=== PATIENT | male | born 1935 | race Caucasian/White ===

== ENCOUNTER 2020-10-04 10:00 | Inpatient (IN) | payer MEDICARE, BC ==
--- NOTE | 2020-10-04 10:23 | ED ---
General Adult HPI - General Stated complaint: COVID+,Diff Breathing Time Seen by Provider: 10/04/20 10:10 - History of Present Illness Initial comments: 85-year-old male with history of dementia presents emergency Department via EMS for weakness and shortness of breath. Per EMS report, patient is a recent resident of [facility] and was found to be unresponsive today with an oxygen saturation of 84. She was started on 3 L which brought up his O2 saturation to 90%. Patient is also developed decreased appetite over the last few days. At baseline he typically is responsive and feeds himself. Patient tested positive for cocaine on 09/20/20. Patient unable to answer any questions. He arrived on a nonrebreather with an O2 of 91-94% - Related Data Home Medications Medication Instructions Recorded Confirmed ALPRAZolam [Xanax] 0.25 mg PO BID@0900,209910/04/20 10/04/20 Acetaminophen Tab [Tylenol] 650 mg PO Q4H PRN 10/04/20 10/04/20 Ascorbic Acid [Vitamin C] 500 mg PO DAILY@89910/04/20 10/04/20 Bisacodyl 10 mg PO Q72H PRN 10/04/20 10/04/20 Cetirizine HCl [Zyrtec] 10 mg PO HS@209910/04/20 10/04/20 Cholecalciferol [Vitamin D3 (25 25 mcg PO DAILY@89910/04/20 10/04/20 Mcg = 1000 Iu)] Donepezil [Aricept] 10 mg PO HS@209910/04/20 10/04/20 Febuxostat [Uloric] 40 mg PO DAILY@89910/04/20 10/04/20 Multivits,Th W-Ca,Fe,Oth Min 1 tab PO DAILY@89910/04/20 10/04/20 [Therapeutic M] Pravastatin Sodium [Pravachol] 40 mg PO HS@209910/04/20 10/04/20 Sertraline [Zoloft] 100 mg PO HS@209910/04/20 10/04/20 Tamsulosin [Flomax] 0.4 mg PO HS@209910/04/20 10/04/20 Zinc Gluconate [Zinc] 50 mg PO DAILY@89910/04/20 10/04/20 amLODIPine [Norvasc] 5 mg PO HS@2100 10/04/20 10/04/20 atenoloL [Atenolol] 25 mg PO DAILY@0900 10/04/20 10/04/20 Allergies Allergy/AdvReac Type Severity Reaction Status Date / Time Penicillins AdvReac Unknown Verified 10/04/20 10:39 Review of Systems ROS Statement: Those systems with pertinent positive or pertinent negative responses have been documented in the HPI. ROS Other: All systems not noted in ROS Statement are negative. General Exam Limitations: altered mental status General appearance: alert, in no apparent distress Head exam: Present: atraumatic, normocephalic, normal inspection Eye exam: Present: normal appearance, PERRL Pupils: Present: normal accommodation ENT exam: Present: normal exam, normal oropharynx, mucous membranes dry, TM's normal bilaterally, normal external ear exam Neck exam: Present: normal inspection, full ROM. Absent: tenderness, lymphadenopathy Respiratory exam: Present: respiratory distress (Tachypneic), rales (Diffuse bilateral rales). Absent: rhonchi, stridor, chest wall tenderness, accessory muscle use Cardiovascular Exam: Present: regular rate, normal rhythm, normal heart sounds. Absent: bradycardia, tachycardia, irregular rhythm GI/Abdominal exam: Present: soft. Absent: distended, tenderness, guarding, rebound Extremities exam: Present: normal inspection, full ROM, normal capillary refill, other (Palpable DP and PT bilaterally). Absent: tenderness, pedal edema, joint swelling, calf tenderness Back exam: Present: normal inspection, full ROM. Absent: tenderness, CVA te nderness (R), CVA tenderness (L) Neurological exam: Present: alert Skin exam: Present: warm, dry, intact, normal color Course Vital Signs 10/04/20 10/04/20 10:20 11:47 Temperature 98.5 F Pulse Rate 108 H 109 H Respiratory 18 20 Rate Blood Pressure 109/88 151/87 O2 Sat by Pulse 93 L 93 L Oximetry EKG Findings - EKG Comments: EKG Findings:: Sinus tachycardia with occasional PAC ventricular rate 110, AL 144, QRS 76, QTC 452. Medical Decision Making - Medical Decision Making 85-year-old male with history of dementia presents emergency department with chief complaint of weakness. On physical examination, patient is arousable but not able to answer questions. Rales noted at bilateral lung base. Patient is currently having oxygen saturation of 92-94% on a nonrebreather at 3 L. Chest x-ray reveals Covid pneumonia. He did test positive for Covid. CBC reveals hemoconcentration likely from dehydration due to decreased oral intake. CMP reveals acute kidney injury with elevated BUN and creatinine of 41 and 2.17, respectfully. He also had an elevated d-dimer and troponin. Not able to rule out PE with a CT secondary to poor renal intake. Patient was started on IV fluids. Also given 6 mg of Decadron and azithromycin. Patient will be admitted for further medical management. Discussed the case with who will admit. Case discussed with Dr mcmahon Nephrology and pulmonary on consult. - Lab Data Result diagrams: 10/04/20 10:26 10/04/20 10:26 Lab Results 10/04/20 10/04/20 10/04/20 Range/Units 10:26 10:26 10:26 WBC 7.1 (3.8-10.6) k/uL RBC 5.90 (4.30-5.90) m/uL Hgb 18.4 H (13.0-17.5) gm/dL Hct 55.8 H (39.0-53.0) % MCV 94.6 (80.0-100.0) fL MCH 31.3 (25.0-35.0) pg MCHC 33.1 (31.0-37.0) g/dL RDW 13.8 (11.5-15.5) % Plt Count 110 L (150-450) k/uL MPV 10.3 Neutrophils % 81 % Lymphocytes % 14 % Monocytes % 3 % Eosinophils % 1 % Basophils % 1 % Neutrophils # 5.7 (1.3-7.7) k/uL Lymphocytes # 1.0 (1.0-4.8) k/uL Monocytes # 0.2 (0-1.0) k/uL Eosinophils # 0.1 (0-0.7) k/uL Basophils # 0.1 (0-0.2) k/uL PT 10.7 (9.0-12.0) sec INR 1.0 (<1.2) APTT 23.4 (22.0-30.0) sec D-Dimer 1.58 H (<0.60) mg/L FEU Sodium 150 H (137-145) mmol/L Potassium 4.6 (3.5-5.1) mmol/L Chloride 117 H (98-107) mmol/L Carbon Dioxide 19 L (22-30) mmol/L Anion Gap 14 mmol/L BUN 41 H (9-20) mg/dL Creatinine 2.17 H (0.66-1.25) mg/dL Est GFR (CKD-EPI)AfAm 31 (>60 ml/min/1.73 sqM) Est GFR (CKD-EPI)NonAf 27 (>60 ml/min/1.73 sqM) Glucose 133 H (74-99) mg/dL Plasma Lactic Acid Doug (0.7-2.0) mmol/L Calcium 10.2 (8.4-10.2) mg/dL Magnesium 2.2 (1.6-2.3) mg/dL Total Bilirubin 0.8 (0.2-1.3) mg/dL AST 75 H (17-59) U/L ALT 34 (4-49) U/L Alkaline Phosphatase 151 H (38-126) U/L Lactate Dehydrogenase 677 H (313-618) U/L Troponin I (0.000-0.034) ng/mL C-Reactive Protein 5.7 H (<1.0) mg/dL Total Protein 6.4 (6.3-8.2) g/dL Albumin 3.8 (3.5-5.0) g/dL Influenza Type A (PCR) (Not Detectd) Influenza Type B (PCR) (Not Detectd) RSV (PCR) (Not Detectd) SARS-CoV-2 (PCR) (Not Detectd) 10/04/20 10/04/20 10/04/20 Range/Units 10:26 10:26 10:26 WBC (3.8-10.6) k/uL RBC (4.30-5.90) m/uL Hgb (13.0-17.5) gm/dL Hct (39.0-53.0) % MCV (80.0-100.0) fL MCH (25.0-35.0) pg MCHC (31.0-37.0) g/dL RDW (11.5-15.5) % Plt Count (150-450) k/uL MPV Neutrophils % % Lymphocytes % % Monocytes % % Eosinophils % % Basophils % % Neutrophils # (1.3-7.7) k/uL Lymphocytes # (1.0-4.8) k/uL Monocytes # (0-1.0) k/uL Eosinophils # (0-0.7) k/uL Basophils # (0-0.2) k/uL PT (9.0-12.0) sec INR (<1.2) APTT (22.0-30.0) sec D-Dimer (<0.60) mg/L FEU Sodium (137-145) mmol/L Potassium (3.5-5.1) mmol/L Chloride (98-107) mmol/L Carbon Dioxide (22-30) mmol/L Anion Gap mmol/L BUN (9-20) mg/dL Creatinine (0.66-1.25) mg/dL Est GFR (CKD-EPI)AfAm (>60 ml/min/1.73 sqM) Est GFR (CKD-EPI)NonAf (>60 ml/min/1.73 sqM) Glucose (74-99) mg/dL Plasma Lactic Acid Doug 2.6 H* (0.7-2.0) mmol/L Calcium (8.4-10.2) mg/dL Magnesium (1.6-2.3) mg/dL Total Bilirubin (0.2-1.3) mg/dL AST (17-59) U/L ALT (4-49) U/L Alkaline Phosphatase (38-126) U/L Lactate Dehydrogenase (313-618) U/L Troponin I 0.111 H* (0.000-0.034) ng/mL C-Reactive Protein (<1.0) mg/dL Total Protein (6.3-8.2) g/dL Albumin (3.5-5.0) g/dL Influenza Type A (PCR) Not Detected (Not Detectd) Influenza Type B (PCR) Not Detected (Not Detectd) RSV (PCR) Not Detected (Not Detectd) SARS-CoV-2 (PCR) Detected A (Not Detectd) Disposition Clinical Impression: Acute kidney injury, Dehydration, Hypoxemia, Pneumonia due to COVID-19 virus Disposition: ADMITTED IP TO THIS HOSP Condition: Fair Is patient prescribed a controlled substance at d/c from ED?: No Referrals: Tacos Cavanaugh MD [Primary Care Provider] - 1-2 days Time of Disposition: 12:30
[2020-10-04 10:39] LABS: Basophils # (A) 0.1 k/uL (0-0.2); Basophils % (A) 1 %; Eosinophils # (A) 0.1 k/uL (0-0.7); Eosinophils % (A) 1 %; HGB 18.4 gm/dL (13.0-17.5); Lymphocytes % (A) 14 %; MCH 31.3 pg (25.0-35.0); MCHC 33.1 g/dL (31.0-37.0); MCV 94.6 fL (80.0-100.0); Mean Platelet Volume 10.3; Monocytes # (A) 0.2 k/uL (0-1.0); Monocytes % (A) 3 %; Neutrophils # (A) 5.7 k/uL (1.3-7.7); Neutrophils % (A) 81 %; RDW 13.8 % (11.5-15.5); WBC 7.1 k/uL (3.8-10.6)
--- NOTE | 2020-10-04 10:44 | XR ---
EXAMINATION TYPE: XR chest 1V portable DATE OF EXAM: 10/04/2020 HISTORY: Shortness of breath. COMPARISON: None. TECHNIQUE: Single view of the chest is submitted. FINDINGS: Demonstrated are scattered senescent parenchymal change. Patchy basilar infiltrates compatible with underlying pneumonia. The heart is stable. Hilar and mediastinal structures are within normal limits. Degenerative changes are seen of the dorsal spine. IMPRESSION: 1. Patchy basilar infiltrates compatible with underlying pneumonia.
[2020-10-04 10:52] LABS: Partial Thromboplastin Time 23.4 sec (22.0-30.0); Prothrombin Time 10.7 sec (9.0-12.0)
[2020-10-04 10:54] LABS: Albumin 3.8 g/dL (3.5-5.0); C Reactive Protein 5.7 mg/dL (<1.0); Calcium 10.2 mg/dL (8.4-10.2); Magnesium 2.2 mg/dL (1.6-2.3); Potassium 4.6 mmol/L (3.5-5.1); Total Bilirubin 0.8 mg/dL (0.2-1.3); Total Protein 6.4 g/dL (6.3-8.2)
[2020-10-04 10:55] LABS: HCT 55.8 % (39.0-53.0); Platelet Count 110 k/uL (150-450)
[2020-10-04 11:06] LABS: D-Dimer 1.58 mg/L FEU (<0.60)
[2020-10-04] MEDS ORDERED: SODIUM CHLORIDE 0.9% 1,000 ML IV STA ×2 (11:14)
[2020-10-04] MEDS ORDERED: AZITHROMYCIN 500 MG in SODIUM CHLORIDE 0.9% 250 ML IVPB STA (11:17)
[2020-10-04] MEDS ORDERED: NALOXONE 0.4 MG/ML 1 ML VIAL IV PRN (12:18)
[2020-10-04] MEDS ORDERED: LORazepam 2 MG/ML INJ IV PRN (12:18)
[2020-10-04] MEDS ORDERED: SODIUM CHLORIDE 0.9% 1,000 ML IV SCH (12:30)
[2020-10-04 14:28] LABS: Appearance,Urine Clear (Clear); Bilirubin,Urine 1+ (Negative); Blood,Urine Negative (Negative); Color,Urine Yellow; Glucose,Urine (UA) Negative (Negative); Ketones,Urine 1+ (Negative); Leukocyte Esterase,Urine Negative (Negative); Mucus,Urine Rare /hpf; Nitrite,Urine Negative (Negative); PH, Urine 5.5 (5.0-8.0); Protein,Urine 1+ (Negative); RBC,Urine 1 /hpf (0-5); Specific Gravity,Urine 1.024 (1.001-1.035); WBC,Urine 2 /hpf (0-5)
[2020-10-04 16:26] LABS: Ferritin 242.8 ng/mL (22.0-322.0)
[2020-10-04] MEDS ORDERED: DEXTROSE 5% IN WATER 1,000 ML IV ONE (17:25)
[2020-10-04] MEDS ORDERED: ACETAMINOPHEN TAB 325 MG TAB PO PRN (17:26)
--- NOTE | 2020-10-04 17:34 | P.HPIM ---
History of Present Illness 85-year-old male with history of dementia presents emergency Department via EMS for weakness and shortness of breath. Per EMS report, patient is a recent resident of [facility] and was found to be unresponsive today with an oxygen sat uration of 84. She was started on 3 L which brought up his O2 saturation to 90%. Patient is also developed decreased appetite over the last few days. At baseline he typically is responsive and feeds himself. Patient tested positive for cocaine on 09/20/20. Patient unable to answer any questions. He arrived on a nonrebreather with an O2 of 91-94% Patient is presently on 100% nonrebreather with oxygen flow rate of 15 L. Patient is severely dehydrated with acute renal failure unable to provide any history to me. A since creatinine is 2.17 baseline is not available BUN of 41. Patient has elevated sodium anion gap metabolic acidosis with lactic acidosis which improved now. Chest x-ray showing patchy bilateral infiltrates Review of Systems REVIEW OF SYSTEMS: Unable to obtain due to his clinical condition Past Medical History Past Medical History: Dementia, Renal Disease Additional Past Medical History / Comment(s): freq falls, gout History of Any Multi-Drug Resistant Organisms: None Reported Past Surgical History: No Surgical Hx Reported Past Psychological History: No Psychological Hx Reported Smoking Status: Never smoker Past Alcohol Use History: None Reported Past Drug Use History: None Reported Medications and Allergies Home Medications Medication Instructions Recorded Confirmed Type ALPRAZolam [Xanax] 0.25 mg PO BID@0900,209910/04/20 10/04/20 History Acetaminophen Tab [Tylenol] 650 mg PO Q4H PRN 10/04/20 10/04/20 History Ascorbic Acid [Vitamin C] 500 mg PO DAILY@89910/04/20 10/04/20 History Bisacodyl 10 mg PO Q72H PRN 10/04/20 10/04/20 History Cetirizine HCl [Zyrtec] 10 mg PO HS@209910/04/20 10/04/20 History Cholecalciferol [Vitamin D3 (25 25 mcg PO DAILY@89910/04/20 10/04/20 History Mcg = 1000 Iu)] Donepezil [Aricept] 10 mg PO HS@209910/04/20 10/04/20 History Febuxostat [Uloric] 40 mg PO DAILY@89910/04/20 10/04/20 History Multivits,Th W-Ca,Fe,Oth Min 1 tab PO DAILY@89910/04/20 10/04/20 History [Therapeutic M] Pravastatin Sodium [Pravachol] 40 mg PO HS@209910/04/20 10/04/20 History Sertraline [Zoloft] 100 mg PO HS@209910/04/20 10/04/20 History Tamsulosin [Flomax] 0.4 mg PO HS@209910/04/20 10/04/20 History Zinc Gluconate [Zinc] 50 mg PO DAILY@89910/04/20 10/04/20 History amLODIPine [Norvasc] 5 mg PO HS@209910/04/20 10/04/20 History atenoloL [Atenolol] 25 mg PO DAILY@89910/04/20 10/04/20 History Allergies Allergy/AdvReac Type Severity Reaction Status Date / Time Penicillins AdvReac Unknown Verified 10/04/20 10:39 Physical Exam Vitals: Vital Signs Temp Pulse Resp BP Pulse Ox 10/04/20 15:41 99 26 H 129/73 10/04/20 15:00 23 128/70 10/04/20 14:00 98 27 H 120/79 10/04/20 13:30 99.9 F H 110 H 28 H 120/78 91 L 10/04/20 12:00 110 H 10/04/20 11:47 109 H 20 151/87 93 L 10/04/20 10:20 98.5 F 108 H 18 109/88 93 L Intake and Output 10/04/20 10/04/20 10/04/20 06:59 14:59 22:59 Other: Weight 78.018 kg PHYSICAL EXAMINATION: GENERAL: Patient is barely responsive, patient is on nonrebreather HEENT: Pupils are round and equally reacting to light. EOMI. No scleral icterus. No conjunctival pallor. Normocephalic, atraumatic. No pharyngeal erythema. No thyromegaly. CARDIOVASCULAR: S1 and S2 present. No murmurs, rubs, or gallops. PULMONARY: Diffuse bilateral rhonchi ABDOMEN: Soft, nontender, nondistended, normoactive bowel sounds. No palpable organomegaly. MUSCULOSKELETAL: No joint swelling or deformity. EXTREMITIES: No cyanosis, clubbing, or pedal edema. NEUROLOGICAL: Barely responsive SKIN: No rashes. Results CBC & Chem 7: 10/04/20 10:10/04/20 10: Labs: Abnormal Lab Results - Last 24 Hours (Table) 10/04/20 10/04/20 10/04/20 Range/Units 10: 10: 10: Hgb 18.4 H (13.0-17.5) gm/dL Hct 55.8 H (39.0-53.0) % Plt Count 110 L (150-450) k/uL D-Dimer 1.58 H (<0.60) mg/L FEU Sodium 150 H (137-145) mmol/L Chloride 117 H (98-107) mmol/L Carbon Dioxide 19 L (22-30) mmol/L BUN 41 H (9-20) mg/dL Creatinine 2.17 H (0.66-1.25) mg/dL Glucose 133 H (74-99) mg/dL Plasma Lactic Acid Doug (0.7-2.0) mmol/L AST 75 H (17-59) U/L Alkaline Phosphatase 151 H (38-126) U/L Lactate Dehydrogenase 677 H (313-618) U/L Troponin I (0.000-0.034) ng/mL C-Reactive Protein 5.7 H (<1.0) mg/dL Urine Protein (Negative) Urine Ketones (Negative) Urine Bilirubin (Negative) Urine Mucus (None) /hpf SARS-CoV-2 (PCR) (Not Detectd) 10/04/20 10/04/20 10/04/20 Range/Units 10: 10: 10: Hgb (13.0-17.5) gm/dL Hct (39.0-53.0) % Plt Count (150-450) k/uL D-Dimer (<0.60) mg/L FEU Sodium (137-145) mmol/L Chloride (98-107) mmol/L Carbon Dioxide (22-30) mmol/L BUN (9-20) mg/dL Creatinine (0.66-1.25) mg/dL Glucose (74-99) mg/dL Plasma Lactic Acid Doug 2.6 H* (0.7-2.0) mmol/L AST (17-59) U/L Alkaline Phosphatase (38-126) U/L Lactate Dehydrogenase (313-618) U/L Troponin I (0.000-0.034) ng/mL C-Reactive Protein (<1.0) mg/dL Urine Protein 1+ H (Negative) Urine Ketones 1+ H (Negative) Urine Bilirubin 1+ H (Negative) Urine Mucus Rare H (None) /hpf SARS-CoV-2 (PCR) Detected A (Not Detectd) 10/04/20 10/04/20 10/04/20 Range/Units 10:26 13:15 13:15 Hgb (13.0-17.5) gm/dL Hct (39.0-53.0) % Plt Count (150-450) k/uL D-Dimer (<0.60) mg/L FEU Sodium (137-145) mmol/L Chloride (98-107) mmol/L Carbon Dioxide (22-30) mmol/L BUN (9-20) mg/dL Creatinine (0.66-1.25) mg/dL Glucose (74-99) mg/dL Plasma Lactic Acid Doug 2.7 H* (0.7-2.0) mmol/L AST (17-59) U/L Alkaline Phosphatase (38-126) U/L Lactate Dehydrogenase (313-618) U/L Troponin I 0.111 H* 0.142 H* (0.000-0.034) ng/mL C-Reactive Protein (<1.0) mg/dL Urine Protein (Negative) Urine Ketones (Negative) Urine Bilirubin (Negative) Urine Mucus (None) /hpf SARS-CoV-2 (PCR) (Not Detectd) 10/04/20 Range/Units 16:05 Hgb (13.0-17.5) gm/dL Hct (39.0-53.0) % Plt Count (150-450) k/uL D-Dimer (<0.60) mg/L FEU Sodium (137-145) mmol/L Chloride (98-107) mmol/L Carbon Dioxide (22-30) mmol/L BUN (9-20) mg/dL Creatinine (0.66-1.25) mg/dL Glucose (74-99) mg/dL Plasma Lactic Acid Doug (0.7-2.0) mmol/L AST (17-59) U/L Alkaline Phosphatase (38-126) U/L Lactate Dehydrogenase (313-618) U/L Troponin I 0.149 H* (0.000-0.034) ng/mL C-Reactive Protein (<1.0) mg/dL Urine Protein (Negative) Urine Ketones (Negative) Urine Bilirubin (Negative) Urine Mucus (None) /hpf SARS-CoV-2 (PCR) (Not Detectd) Assessment and Plan Plan: -Acute hypoxic respiratory failure probably secondary to go with pneumonia patient is on nonrebreather, poor prognosis is extremely poor patient will be started on Decadron zinc, multivitamin supplementation. -Possible acute renal failure patient will be started on D5 with 1 amp of bicarbonate -Anion gap and noniron gap metabolic acidosis, anion gap metabolic acidosis secondary to lactic acidosis noniron gap secondary to renal failure. -Hypovolemic hypernatremia patient was started on IV fluids as mentioned above -Dementia. Appears to be a moderate dementia patient usual mental status is oriented 2. -Hyperlipidemia -Hypertension except for atenolol rest of the aneurysmal medications will be held extended-depression -DVT prophylaxis with subcutaneous heparin due to renal failure CODE STATUS: DO NOT RESUSCITATE patient prognosis is poor
[2020-10-04] MEDS ORDERED: DEXTROSE 5% IN WATER 1,000 ML with SODIUM BICARB (1 MEQ/ML) 50 ML IV ONE (18:00)
[2020-10-04] MEDS ORDERED: TAMSULOSIN 0.4 MG CAP.ER.24H PO SCH (21:00)
[2020-10-04] MEDS ORDERED: PRAVASTATIN SODIUM 40 MG TAB PO SCH (21:00)
[2020-10-04] MEDS ORDERED: SERTRALINE 100 MG TAB PO SCH (21:00)
[2020-10-04] MEDS: HEPARIN SODIUM,PORCINE/PF 5,000 UNIT/0.5 ML SYRINGE SQ SCH (21:03)
[2020-10-04] MEDS: INSULIN ASPART (NovoLOG) 100 UNIT/ML VIAL SQ SCH (21:17)
[2020-10-04 22:09] LABS: Glucose,Whole Blood 135 mg/dL (75-99)
[2020-10-05 07:01] LABS: Glucose,Whole Blood 134 mg/dL (75-99)
[2020-10-05] MEDS: INSULIN ASPART (NovoLOG) 100 UNIT/ML VIAL SQ SCH (07:11)
[2020-10-05] MEDS: HEPARIN SODIUM,PORCINE/PF 5,000 UNIT/0.5 ML SYRINGE SQ SCH (07:59)
[2020-10-05] MEDS ORDERED: DEXAMETHASONE SOD PHOSPHATE 10 MG/ML 1 ML VIAL IV SCH (09:00)
[2020-10-05] MEDS ORDERED: FAMOTIDINE 20 MG TAB PO SCH (09:00)
[2020-10-05] MEDS ORDERED: CHOLECALCIFEROL 25 MCG (1000 IU) TABLET PO SCH (09:00)
[2020-10-05] MEDS ORDERED: ASCORBIC ACID 500 MG TAB PO SCH (09:00)
[2020-10-05] MEDS ORDERED: ZINC SULFATE 220 MG CAP PO SCH (09:00)
[2020-10-05] MEDS ORDERED: allopurinoL 100 MG TAB PO SCH (09:00)
[2020-10-05] MEDS ORDERED: atenoloL 25 MG TAB PO SCH (09:00)
[2020-10-05 11:47] LABS: African American GFR (CKD) 32.1 (60.0-200.0); Anion Gap 9.2 mmol/L (4.00-12.00); BUN/Creat Ratio 23.33 Ratio (12.00-20.00); Calcium 8.9 mg/dL (8.7-10.3); Carbon Dioxide 20.8 mmol/L (21.6-31.8); Non-African American GFR(CKD) 27.7 (60.0-200.0); Potassium 3.9 mmol/L (3.5-5.5)
--- NOTE | 2020-10-05 12:09 | CONS ---
CONSULTATION REASON FOR CONSULT: Renal failure. HISTORY OF PRESENT ILLNESS: Patient is an 85-year-old male who was admitted to the hospital with mental status changes. He has underlying dementia. He had not been eating much over the past few days prior to admission. There is suggestion of possible code status change to comfort care measures. However, this has not been done yet. Currently, patient is NO CODE, NO INTUBATION CODE STATUS. The patient's blood pressure has been low with systolic of 98 mmHg yesterday. He is currently maintained on IV fluids. Serum creatinine was 2.17 yesterday we do not have any labs today, they are still pending and prior labs are not available for comparison. The patient's sodium was elevated at 150 yesterday. He has had some urine output 400 mL is charted so far. History cannot be obtained from the patient. It is obtained from chart review. PAST MEDICAL HISTORY: Dementia. It appears that patient does have chronic kidney disease documented in his medical history. MEDICATIONS: Medications prior to admission included Xanax, Tylenol, vitamin C, Bisacodyl, Zyrtec, Aricept, Uloric, Zoloft, Flomax, Zinc, Norvasc, atenolol. ALLERGIES: Allergies include PENICILLIN. REVIEW OF SYSTEMS: Review of systems cannot be obtained. PHYSICAL EXAMINATION: Patient is currently comfortable. He is unresponsive. Responds to painful stimuli but is not able to communicate. Blood pressure 104/66, heart rate 77 per minute. He is afebrile. Examination of lower extremities shows no evidence of edema. PARACHUTE PANEL JOINER exam cannot be performed. Heart and lungs are not examined. LABS: Labs revealed from 10/04/2020, sodium 150, potassium 4.6, chloride 117, CO2 is 19, BUN 41, creatinine 2.17. Lactic acid was 2.7 down to 1.8 now. UA shows 1+ protein, 1+ ketones, bilirubin 1+, no blood noted. COVID PCR is positive. ASSESSMENT: 1. Acute kidney injury most likely prerenal. Continue with IV fluids. Rule out urine retention. Check a bladder scan. The patient has been voiding. 2. Hypernatremia associated with free water deficit maintained on D5W. 3. Metabolic acidosis secondary to renal failure, maintained on a bicarb drip. 4. Lactic acidosis secondary to hypotension hypoperfusion, currently improved. 5. COVID pneumonia. 6. Altered mentation multifactorial including electrolyte imbalance, underlying COVID pneumonia. The patient also has underlying history of dementia. PLAN: Continue with the D5W. Repeat labs today and we will decide about the bicarb drip based on his labs from today. Check a bladder scan. Rule out urine retention. Thank you for this consultation. Will continue to follow the patient with you during his hospitalization. KATLIN / WADEN: [id number] /
--- NOTE | 2020-10-05 13:37 | P.CNPUL ---
History of Present Illness Consult date: 10/05/20 Requesting physician: Hiren Sinha Reason for consult: dyspnea, hypoxemia, pneumonia, abnormal CXR/CT Chief complaint: COVID 19 pneumonia, respiratory failure. History of present illness: Pulmonary consult dated 10/05/2020. 85-year-old male, no code, with a history of severe dementia, who was transferred in from [facility]. The patient apparently was found there to be very weak, and short of breath. Apparently saturations were in the mid 80s. The patient was started on oxygen therapy, and brought to the ER to be evaluated. Apparently over the last couple of days, the patient's had a very poor appetite. The patient is typically responsive and able to feed himself. Ankur brizuela apparently tested positive for coronavirus on September 20 according to the family. Currently, he is unable to answer any questions. The patient is currently on 15 L high flow nasal oxygen. I did have a chance to speak to the nurse, and also the family. They state that the patient had prior wishes not to have anything heroic done, should he find himself critically ill, including mechanical ventilation. In addition, the patient is a ready a DO NOT RESUSCITATE, and the family wishes to proceed with comfort care orders. Currently, white count 7.1, hemoglobin 18.4, hematocrit 55.8, and platelet count of 110,000. PT INR and PTT are normal. D-dimer was 1.58. Sodium 152, potassium 3.9, chlorides 122, CO2 20.8, anion gap is 9, BUN 49, and creatinine 2.1. Troponin was 0.149. LDH was 677, and C-reactive protein was 5.7. Urine has 1+ protein 1+ ketones and 1+ bilirubin. Coronavirus testing was positive. Pro-calcitonin level was 0.32. Chest x-ray shows patchy bibasilar infiltrates. Review of Systems REVIEW OF SYSTEMS: The patient is unable to give any history at this time. CONSTITUTIONAL: [Negative.] NEUROLOGIC: [ Negative.] HEENT: [ Negative.] CARDIAC: [Negative.] PULMONARY: [Negative.] GI: [Negative.] : [Negative.] RHEUMATOLOGIC: [ Negative.] IMMUNOLOGIC: [ Negative.] ENDOCRINE: [Negative. ] DERMATOLOGIC: [Negative.] Past Medical History Past Medical History: Dementia, Renal Disease Additional Past Medical History / Comment(s): freq falls, gout History of Any Multi-Drug Resistant Organisms: None Reported Past Surgical History: Orthopedic Surgery Past Psychological History: No Psychological Hx Reported Smoking Status: Never smoker Past Alcohol Use History: None Reported Past Drug Use History: None Reported Medications and Allergies Home Medications Medication Instructions Recorded Confirmed Type ALPRAZolam [Xanax] 0.25 mg PO BID@0900,209910/04/20 10/04/20 History Acetaminophen Tab [Tylenol] 650 mg PO Q4H PRN 10/04/20 10/04/20 History Ascorbic Acid [Vitamin C] 500 mg PO DAILY@89910/04/20 10/04/20 History Bisacodyl 10 mg PO Q72H PRN 10/04/20 10/04/20 History Cetirizine HCl [Zyrtec] 10 mg PO HS@209910/04/20 10/04/20 History Cholecalciferol [Vitamin D3 (25 25 mcg PO DAILY@89910/04/20 10/04/20 History Mcg = 1000 Iu)] Donepezil [Aricept] 10 mg PO HS@209910/04/20 10/04/20 History Febuxostat [Uloric] 40 mg PO DAILY@89910/04/20 10/04/20 History Multivits,Th W-Ca,Fe,Oth Min 1 tab PO DAILY@89910/04/20 10/04/20 History [Therapeutic M] Pravastatin Sodium [Pravachol] 40 mg PO HS@209910/04/20 10/04/20 History Sertraline [Zoloft] 100 mg PO HS@209910/04/20 10/04/20 History Tamsulosin [Flomax] 0.4 mg PO HS@209910/04/20 10/04/20 History Zinc Gluconate [Zinc] 50 mg PO DAILY@89910/04/20 10/04/20 History amLODIPine [Norvasc] 5 mg PO HS@209910/04/20 10/04/20 History atenoloL [Atenolol] 25 mg PO DAILY@0900 10/04/20 10/04/20 History Allergies Allergy/AdvReac Type Severity Reaction Status Date / Time Penicillins AdvReac Unknown Verified 10/04/20 10:39 Physical Exam Osteopathic Statement: *. No significant issues noted on an osteopathic structural exam other than those noted in the History and Physical/Consult. Vitals: Vital Signs Temp Pulse Pulse Resp BP BP Pulse Ox 10/05/20 10:01 99.9 F H 77 29 H 104/66 93 L 10/05/20 05:22 99.2 F 84 26 H 98/61 92 L 10/05/20 01:52 98.3 F 83 20 116/82 91 L 10/04/20 23:03 99.5 F 96 19 153/80 92 L 10/04/20 21:49 99.5 F 96 17 153/80 92 L 10/04/20 18:49 98.4 F 105 H 33 H 119/79 93 L 10/04/20 18:22 105 H 37 H 120/70 10/04/20 17:00 98 40 H 122/69 10/04/20 15:41 99 26 H 129/73 10/04/20 15:00 23 128/70 10/04/20 14:00 98 30 H 120/79 10/04/20 13:30 99.9 F H 110 H 28 H 120/78 91 L Intake and Output 10/04/20 10/05/20 10/05/20 22:59 06:59 14:59 Output Total 400 Balance -400 Output: Urine 400 Other: # Bowel Movements 1 Weight 78.018 kg Mild respiratory distress, lethargic/somnolent, currently on a nonrebreather mask. Saturations are 91-92%. HEENT examination is grossly unremarkable. Neck supple. Full range of motion. No adenopathy thyromegaly or neck vein distention. Cardiovascular examination reveals regular rhythm rate. S1-S2 normal. No S3 or S4. No discernible murmur noted. Heart sounds are distant. Heart rate 77 bpm. Lungs reveal coarse bilateral rhonchi. No wheezes or crackles. Breath sounds equal bilaterally. The patient really does not take deep breaths. Abdomen soft, without bowel sounds. No masses. Extremities are intact. No cyanosis or clubbing. Trace edema. Skin is without rash or lesion. Neurologic examination reveals a very poorly responsive man, who does try to open his eyes when verbally stimulated. He isn't able to verbalize himself. Results - Laboratory Findings CBC and BMP: 05/20/21 10:10/05/20 07:46 PT/INR, D-dimer PT 10.7 sec (9.0-12.0) 10/04/20 10: INR 1.0 (<1.2) 10/04/20 10: D-Dimer 1.58 mg/L FEU (<0.60) H 10/04/20 10:26 Abnormal lab findings: Abnormal Labs 10/04/20 10/04/20 10/04/20 10:26 10:26 10:26 Hgb 18.4 H Hct 55.8 H Plt Count 110 L D-Dimer 1.58 H Sodium 150 H Chloride 117 H Carbon Dioxide 19 L BUN 41 H Creatinine 2.17 H Est GFR (CKD-EPI)AfAm Est GFR (CKD-EPI)NonAf BUN/Creatinine Ratio Glucose 133 H POC Glucose (mg/dL) Plasma Lactic Acid Doug AST 75 H Alkaline Phosphatase 151 H Lactate Dehydrogenase 677 H Troponin I C-Reactive Protein 5.7 H Procalcitonin Urine Protein Urine Ketones Urine Bilirubin Urine Mucus SARS-CoV-2 (PCR) 10/04/20 10/04/20 10/04/20 10:26 10:26 10:26 Hgb Hct Plt Count D-Dimer Sodium Chloride Carbon Dioxide BUN Creatinine Est GFR (CKD-EPI)AfAm Est GFR (CKD-EPI)NonAf BUN/Creatinine Ratio Glucose POC Glucose (mg/dL) Plasma Lactic Acid Doug 2.6 H* AST Alkaline Phosphatase Lactate Dehydrogenase Troponin I C-Reactive Protein Procalcitonin 0.32 H Urine Protein Urine Ketones Urine Bilirubin Urine Mucus SARS-CoV-2 (PCR) Detected A 10/04/20 10/04/20 10/04/20 10: 10:26 13:15 Hgb Hct Plt Count D-Dimer Sodium Chloride Carbon Dioxide BUN Creatinine Est GFR (CKD-EPI)AfAm Est GFR (CKD-EPI)NonAf BUN/Creatinine Ratio Glucose POC Glucose (mg/dL) Plasma Lactic Acid Doug AST Alkaline Phosphatase Lactate Dehydrogenase Troponin I 0.111 H* 0.142 H* C-Reactive Protein Procalcitonin Urine Protein 1+ H Urine Ketones 1+ H Urine Bilirubin 1+ H Urine Mucus Rare H SARS-CoV-2 (PCR) 10/04/20 10/04/20 10/04/20 13:15 16:05 22:07 Hgb Hct Plt Count D-Dimer Sodium Chloride Carbon Dioxide BUN Creatinine Est GFR (CKD-EPI)AfAm Est GFR (CKD-EPI)NonAf BUN/Creatinine Ratio Glucose POC Glucose (mg/dL) 135 H Plasma Lactic Acid Doug 2.7 H* AST Alkaline Phosphatase Lactate Dehydrogenase Troponin I 0.149 H* C-Reactive Protein Procalcitonin Urine Protein Urine Ketones Urine Bilirubin Urine Mucus SARS-CoV-2 (PCR) 10/05/20 10/05/20 06:59 07:46 Hgb Hct Plt Count D-Dimer Sodium 152 H Chloride 122 H Carbon Dioxide 20.8 L BUN 49.0 H Creatinine 2.1 H Est GFR (CKD-EPI)AfAm 32.1 L Est GFR (CKD-EPI)NonAf 27.7 L BUN/Creatinine Ratio 23.33 H Glucose 130 H POC Glucose (mg/dL) 134 H Plasma Lactic Acid Doug AST Alkaline Phosphatase Lactate Dehydrogenase Troponin I C-Reactive Protein Procalcitonin Urine Protein Urine Ketones Urine Bilirubin Urine Mucus SARS-CoV-2 (PCR) - Diagnostic Findings Chest x-ray: image reviewed Assessment and Plan Assessment: Acute hypoxemic respiratory failure secondary to COVID 19 pneumonia. History of severe dementia. History of hypertension. History of hyperlipidemia. History of gout. History of BPH. Plan: Plan dated 10/05/2000. I had a chance to speak to the family including the . The patient's family was adamant that the patient would not want anything heroic done at this time, including intubation or mechanical ventilation. The patient came to us is a DO NOT RESUSCITATE patient. They do want to proceed with comfort care orders. I explained to them that we will try to make him comfortable, and do nothing to hasten his . We will provide him with oxygen, Ativan, scopolamine patch, and morphine. Additional recommendations and suggestions are forthcoming. Prognosis is obviously very poor. Time with Patient: Greater than 30
[2020-10-05] MEDS ORDERED: SCOPOLAMINE 1.5MG/72HR PATCH TRANSDERM SCH (15:00)
--- NOTE | 2020-10-05 15:50 | P.PN ---
Subjective 85-year-old male with history of dementia presents emergency Department via EMS for weakness and shortness of breath. Per EMS report, patient is a recent resident of [facility] and was found to be unresponsive today with an oxygen saturation of 84. She was started on 3 L which brought up his O2 saturation to 90%. Patient is also developed decreased appetite over the last few days. At baseline he typically is responsive and feeds himself. Patient tested positive for cocaine on 09/20/20. Patient unable to answer any questions. He arrived on a nonrebreather with an O2 of 91-94% Patient is presently on 100% nonrebreather with oxygen flow rate of 15 L. Patient is severely dehydrated with acute renal failure unable to provide any history to me. A since creatinine is 2.17 baseline is not available BUN of 41. Patient has elevated sodium anion gap metabolic acidosis with lactic acidosis which improved now. Chest x-ray showing patchy bilateral infiltrates 10/05/2020 Patient is pretty status remains the same or bit worse. Patient was evaluated by pulmonology did discuss to comfort care and hospice with the family members and patient is presently comfort care. Review of systems: Unable to obtain at this time All inpatient medications were reviewed and appropriate changes in these medications as dictated in the interval history and assessment and plan. Objective - Vital Signs Vital signs: Vital Signs Temp 98.5 F 10/05/20 15:02 Pulse 74 10/05/20 15:02 Resp 27 H 10/05/20 15:02 BP 129/76 10/05/20 15:02 Pulse Ox 96 10/05/20 15:02 Intake & Output 10/04/20 10/05/20 10/05/20 18:59 06:59 18:59 Output Total 400 Balance -400 Weight 78.018 kg 78.018 kg Output: Urine 400 Other: # Bowel Movements 1 - Exam PHYSICAL EXAMINATION: GENERAL: Patient is comfortable nonresponsive. HEENT: Pupils are round and equally reacting to light. EOMI. No scleral icterus. No conjunctival pallor. Normocephalic, atraumatic. No pharyngeal erythema. No thyromegaly. CARDIOVASCULAR: S1 and S2 present. No murmurs, rubs, or gallops. PULMONARY: Diffuse bilateral rhonchi ABDOMEN: Soft, nontender, nondistended, normoactive bowel sounds. No palpable organomegaly. MUSCULOSKELETAL: No joint swelling or deformity. EXTREMITIES: No cyanosis, clubbing, or pedal edema. NEUROLOGICAL: Barely responsive SKIN: No rashes. - Labs CBC & Chem 7: 10/04/20 10:26 10/05/20 07:46 Labs: Abnormal Lab Results - Last 24 Hours (Table) 10/04/20 10/04/20 10/04/20 Range/Units 10:26 16:05 22:07 Sodium (135-145) mmol/L Chloride (96-109) mmol/L Carbon Dioxide (21.6-31.8) mmol/L BUN (9.0-27.0) mg/dL Creatinine (0.6-1.5) mg/dL Est GFR (CKD-EPI)AfAm (60.0-200.0) Est GFR (CKD-EPI)NonAf (60.0-200.0) BUN/Creatinine Ratio (12.00-20.00) Ratio Glucose (70-110) mg/dL POC Glucose (mg/dL) 135 H (75-99) mg/dL Troponin I 0.149 H* (0.000-0.034) ng/mL Procalcitonin 0.32 H (0.02-0.09) ng/mL 10/05/20 10/05/20 Range/Units 06:59 07:46 Sodium 152 H (135-145) mmol/L Chloride 122 H (96-109) mmol/L Carbon Dioxide 20.8 L (21.6-31.8) mmol/L BUN 49.0 H (9.0-27.0) mg/dL Creatinine 2.1 H (0.6-1.5) mg/dL Est GFR (CKD-EPI)AfAm 32.1 L (60.0-200.0) Est GFR (CKD-EPI)NonAf 27.7 L (60.0-200.0) BUN/Creatinine Ratio 23.33 H (12.00-20.00) Ratio Glucose 130 H (70-110) mg/dL POC Glucose (mg/dL) 134 H (75-99) mg/dL Troponin I (0.000-0.034) ng/mL Procalcitonin (0.02-0.09) ng/mL Microbiology - Last 24 Hours (Table) 10/04/20 13:15 Blood Culture - Preliminary Blood No Growth after 24 hours 10/04/20 11:49 Blood Culture - Preliminary Blood No Growth after 24 hours Assessment and Plan Plan: -Acute hypoxic respiratory failure probably secondary to covid pneumonia -Possible acute renal failure -Anion gap and noniron gap metabolic acidosis, anion gap metabolic acidosis secondary to lactic acidosis noniron gap secondary to renal failure. -Hypovolemic hypernatremia pa -Dementia. -Hyperlipidemia -Hypertension -DVT prophylaxis with subcutaneous heparin due to renal failure CODE STATUS: DO NOT RESUSCITATE patient prognosis is poor Patient's prognosis is extremely poor patient was started on comfort measures.
[2020-10-05] MEDS: MORPHINE SULFATE (100 MG/2 ML) 100 MG in SODIUM CHLORIDE 0.9% 100 ML IV SCH (16:22)
[2020-10-05] MEDS: DEXTROSE 5% IN WATER 1,000 ML IV SCH (16:23)
[2020-10-06] MEDS: DEXTROSE 5% IN WATER 1,000 ML IV SCH ×2 (00:10→12:57)
[2020-10-06] MEDS: INSULIN ASPART (NovoLOG) 100 UNIT/ML VIAL SQ SCH (06:03)
[2020-10-06 06:50] VITALS: BP 114/69; TEMP 96.7
--- NOTE | 2020-10-06 16:28 | P.PN ---
Subjective Progress Note Date: 10/06/20 85-year-old male with history of dementia presents emergency Department via EMS for weakness and shortness of breath. Per EMS report, patient is a recent resident of [facility] and was found to be unresponsive today with an oxygen saturation of 84. She was started on 3 L which brought up his O2 saturation to 90%. Patient is also developed decreased appetite over the last few days. At baseline he typically is responsive and feeds himself. Patient tested positive for cocaine on 09/20/20. Patient unable to answer any questions. He arrived on a nonrebreather with an O2 of 91-94% Patient is presently on 100% nonrebreather with oxygen flow rate of 15 L. Patient is severely dehydrated with acute renal failure unable to provide any history to me. A since creatinine is 2.17 baseline is not available BUN of 41. Patient has elevated sodium anion gap metabolic acidosis with lactic acidosis which improved now. Chest x-ray showing patchy bilateral infiltrates 10/05/2020 Patient is pretty status remains the same or bit worse. Patient was evaluated by pulmonology did discuss to comfort care and hospice with the family members and patient is presently comfort care. 10/06/2020 Patient seen on follow-up, is in comfort care measures, Does not appear to be in any acute distress, is resting in bed with slow respirations. Review of systems: Unable to obtain at this time All inpatient medications were reviewed and appropriate changes in these medications as dictated in the interval history and assessment and plan. Objective - Vital Signs Vital signs: Vital Signs Temp 96.7 F L 10/06/20 05:46 Pulse 64 10/06/20 05:46 Resp 20 10/05/20 20:00 BP 114/69 10/06/20 05:46 Pulse Ox 79 L 10/06/20 05:46 Intake & Output 10/05/20 10/06/20 10/06/20 18:59 06:59 18:59 Intake Total 28.764 Output Total 400 Balance -400 .764 Intake: Intake, IV Titration 28.764 Amount Morphine Sulfate (100 mg/ 764 2 ml) 100 mg In Sodium Chloride 0.9% 100 ml @ 1 MG/HR 1.02 mls/hr IV . Q24H [facility] Rx#:[id number] Output: Urine 400 Other: Voiding Method Indwelling Catheter Indwelling Catheter # Voids 300 - Exam PHYSICAL EXAMINATION: GENERAL: Patient nonresponsive. CARDIOVASCULAR: S1 and S2 present. PULMONARY: Diffuse bilateral rhonchi, upper airway secretions EXTREMITIES: No cyanosis, clubbing, or pedal edema. NEUROLOGICAL: Barely responsive - Labs CBC & Chem 7: 10/04/20 10:26 10/05/20 07:46 Labs: Microbiology - Last 24 Hours (Table) 10/04/20 13:15 Blood Culture - Preliminary Blood No Growth after 48 hours 10/04/20 11:49 Blood Culture - Preliminary Blood No Growth after 48 hours Assessment and Plan Assessment: Plan: -Acute hypoxic respiratory failure probably secondary to covid pneumonia -Possible acute renal failure -Anion gap and noniron gap metabolic acidosis, anion gap metabolic acidosis secondary to lactic acidosis noniron gap secondary to renal failure. -Hypovolemic hypernatremia pa -Dementia. -Hyperlipidemia -Hypertension -DVT prophylaxis with subcutaneous heparin due to renal failure CODE STATUS: DO NOT RESUSCITATE patient prognosis is poor Patient's prognosis is extremely poor comfort measures are in place.
[2020-10-06] MEDS: MORPHINE SULFATE (100 MG/2 ML) 100 MG in SODIUM CHLORIDE 0.9% 100 ML IV SCH ×2 (17:57→22:16)
[2020-10-07 02:48] VITALS: PULSE 100; RESP 22
[2020-10-07] MEDS: DEXTROSE 5% IN WATER 1,000 ML IV SCH (06:21)
--- NOTE | 2020-10-07 15:21 | P.DS ---
Providers Date of admission: 10/04/20 13:17 Attending physician: Hirne Sinha Consults: 10/04/20 12:18 Consult Physician Routine Consulting Provider: Jeannine Mancera Consult Reason/Comments: Acute kidney injury, Covid pneumonia Do you want consulting provider notified?: Yes 10/04/20 12:19 Consult Physician Routine Consulting Provider: Raffy Chin Reason/Comments: Covid pneumonia Do you want consulting provider notified?: Yes Primary care physician: Tacos Cavanaugh Hospital Course: Patient today. Patient was treated for a Covid 19 pneumonia here. Please refer to the progress note from yesterday for further details of hospitalization was made comfort care couple days ago. Please refer to nursing documentation for exact time of . Patient Condition at Discharge: Fair Plan - Discharge Summary New Discharge Prescriptions: No Action Bisacodyl 10 mg PO Q72H PRN PRN Reason: Constipation Sertraline [Zoloft] 100 mg PO HS@2100 Febuxostat [Uloric] 40 mg PO DAILY@0900 ALPRAZolam [Xanax] 0.25 mg PO BID@0900,2100 amLODIPine [Norvasc] 5 mg PO HS@2100 Pravastatin Sodium [Pravachol] 40 mg PO HS@2100 Multivits,Th W-Ca,Fe,Oth Min [Therapeutic M] 1 tab PO DAILY@0900 atenoloL [Atenolol] 25 mg PO DAILY@0900 Tamsulosin [Flomax] 0.4 mg PO HS@2100 Cetirizine HCl [Zyrtec] 10 mg PO HS@2100 Ascorbic Acid [Vitamin C] 500 mg PO DAILY@0900 Acetaminophen Tab [Tylenol] 650 mg PO Q4H PRN PRN Reason: Fever Zinc Gluconate [Zinc] 50 mg PO DAILY@0900 Cholecalciferol [Vitamin D3 (25 Mcg = 1000 Iu)] 25 mcg PO DAILY@0900 Donepezil [Aricept] 10 mg PO HS@2100 Discharge Medication List ALPRAZolam [Xanax] 0.25 mg PO BID@0900,2100 10/04/20 [History] Acetaminophen Tab [Tylenol] 650 mg PO Q4H PRN 10/04/20 [History] Ascorbic Acid [Vitamin C] 500 mg PO DAILY@0900 10/04/20 [History] Bisacodyl 10 mg PO Q72H PRN 10/04/20 [History] Cetirizine HCl [Zyrtec] 10 mg PO HS@209910/04/20 [History] Cholecalciferol [Vitamin D3 (25 Mcg = 1000 Iu)] 25 mcg PO DAILY@89910/04/20 [History] Donepezil [Aricept] 10 mg PO HS@209910/04/20 [History] Febuxostat [Uloric] 40 mg PO DAILY@89910/04/20 [History] Multivits,Th W-Ca,Fe,Oth Min [Therapeutic M] 1 tab PO DAILY@89910/04/20 [History] Pravastatin Sodium [Pravachol] 40 mg PO HS@209910/04/20 [History] Sertraline [Zoloft] 100 mg PO HS@209910/04/20 [History] Tamsulosin [Flomax] 0.4 mg PO HS@209910/04/20 [History] Zinc Gluconate [Zinc] 50 mg PO DAILY@89910/04/20 [History] amLODIPine [Norvasc] 5 mg PO HS@209910/04/20 [History] atenoloL [Atenolol] 25 mg PO DAILY@89910/04/20 [History] Follow up Appointment(s)/Referral(s): Tacos Cavanaugh MD [Primary Care Provider] - 1-2 days Discharge Disposition: - Preliminary Cause of Preliminary Cause of : Covid 19
--- NOTE | 2020-10-31 13:15 | CDI ---
Documentation Clarification Form Mortality Review Date: 10/31/2020 01:02:06 PM From: Laila Barr RN, CCDS Admit Date: 10/04/2020 01:17:00 PM Patient Name: Lucas Sanabria Visit Number: [id number] Discharge Date: 10/07/2020 08:40:00 AM ATTENTION: The Clinical Documentation Specialists (CDI) and [facility] Coding Staff appreciate your assistance in clarifying documentation. Please respond to the clarification below the line at the bottom and electronically sign. The CDI & [facility] Coding staff will review the response and follow-up if needed. Please note: Queries are made part of the Legal Health Record. If you have any questions, please contact the author of this message via ITS. Dr. Hiren Sinha Your patient has the documented symptom of Altered Mental Status in the ED Note and the Pulmonary consult. Additional clarification regarding the etiology/cause of this symptom is requested. History/Risk Factors: Acute hypoxic respiratory failure, ARF, Hypovolemic hyponatremia, metabolic acidosis Clinical Indicators: 10/07 Pulmonary consult: "Altered mentation multifactorial including electrolyte imbalance, underlying COVID pneumonia." 10/04 Labs: NA+ 150/158, BUN 41/49, Creatinine 2.17/2.1, Lactic acid 2.6/2.7/1.8, troponin .111/.142/.149, + SARS CoV-2 PCR 10/04 CXR: "Patchy basilar infiltrates compatible with underlying pneumonia." Treatment: 10/04 Zithromax 500 mg IVPB OT 10/05 Decadron 6mg IV OT 10/04 D5W with HCO3 Gtt @ 75 cc/hr. 10/04 0.9% NS IVF Bolus 1L followed by 75 cc/hr. Please clarify the etiology of the symptom of Altered Mental Status: [ ] Metabolic Encephalopathy due to (please specify cause of encephalopathy) [ ] Dementia (if know, specify Type and if with/without Behavioral Disturbance) [ ] Other condition (please specify) [ ] Unable to determine (Template Last Revised: June 2020) Toxic encephalopathy secondary to infection MTDD
== END 2020-10-07 08:40 | disposition expired | DRG 177 ==
LOC: EC 10:00 → 4SSUR 13:17
PROVIDERS: ADMIT Internal Medicine; ATTEND Internal Medicine
DX: U07.1 COVID-19 (principal); J12.82 Pneumonia due to coronavirus disease 2019; J96.01 Acute respiratory failure with hypoxia; G92 Toxic encephalopathy; N17.9 Acute kidney failure, unspecified; E87.2 Acidosis; E87.0 Hyperosmolality and hypernatremia; F03.90 Unspecified dementia, unspecified severity, without behavioral disturbance, psychotic disturbance, mood disturbance, and anxiety; E86.0 Dehydration; M10.9 Gout, unspecified; E78.5 Hyperlipidemia, unspecified; Z66 Do not resuscitate; Z51.5 Encounter for palliative care; E86.1 Hypovolemia; N18.9 Chronic kidney disease, unspecified; I12.9 Hypertensive chronic kidney disease with stage 1 through stage 4 chronic kidney disease, or unspecified chronic kidney disease; Z88.0 Allergy status to penicillin; N40.0 Benign prostatic hyperplasia without lower urinary tract symptoms; F32.9 Major depressive disorder, single episode, unspecified
CPT/HCPCS: 36415; 71045; 80048; 80053; 81001; 82728; 83605; 83615; 83735; 84145; 84484; 85025; 85379; 85610; 85730; 86140; 87040; 87636; 93005; 99285